=== PATIENT | female | born 1950 | race Caucasian/White ===

== ENCOUNTER 2019-01-28 05:04 | Inpatient (IN) ==
--- NOTE | 2019-01-10 18:54 | History and Physical Report ---
DATE OF ADMISSION: 01/28/2019 CHIEF COMPLAINT: Bilateral hip pain, right side greater than left. HISTORY OF PRESENT ILLNESS: The patient is a 68-year-old female from [place] who presents for surgical treatment of her hips. She has got a fairly long history of bilateral hip pain and discomfort. She describes it has gotten worse over the past 3-5 years. She looks after grandchildren, has been trying to put this off for a long time. The pain has just become more debilitating. She limps and waddles for years. This has gotten worse to the point where she cannot walk even a block. She has been through extensive treatment including various medicines which takes the edge off at best. She now likes to proceed with intervention. 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 PAST SURGICAL HISTORY: Include: 1. T and A. 2. Tubal ligation. 3. Facial surgery for skin cancer. ALLERGIES: None. CURRENT MEDICATIONS: Ibuprofen. SOCIAL HISTORY: A 68-year-old white female patient from [place]. She does not work outside the home, but does look after her grandchildren. Three children. Rare alcohol intake. FAMILY HISTORY: Significant for breast cancer and heart disease. REVIEW OF SYSTEMS: Negative for diabetes, neurologic problems, vascular problems or bleeding disorders. No chest pain or shortness of breath. No signs of DVT or PE. No known bleeding problems. PHYSICAL EXAMINATION: GENERAL: Reveals a healthy, pleasant middle-aged female. Looks to be in pretty good health. HEENT: Benign. NECK: Supple with no lymphadenopathy. LUNGS: Clear to auscultation. HEART: Regular rate and rhythm. ABDOMEN: Soft, nontender, nondistended. EXTREMITIES: Grossly neurovascularly intact except as follows: Examination of both hips reveal patient walks with a markedly antalgic gait. She waddles quite a bit. She does have a positive Trendelenburg gait. She is about 0.5 cm short on the right compared to the left. Very stiff hips with limited motion. She has got pain with hip motion on either side. She has got about a 15 degree external rotation contracture on the right and about 10 degrees on the left. Negative straight leg raise. X-RAYS: X-rays of both hips reveal advanced bilateral hip DJD with extensive erosive disease of both hips with complete loss of the joint space and cystic changes on both sides. She does have fairly diffuse osteopenia. ASSESSMENT: A 68-year-old white female with longstanding hip disease, unresponsive to conservative treatment. Her disease is very advanced and affecting her quality of life. She would like to proceed with intervention. PLAN: We are going to take her to the operating room and do a right total hip replacement. The risks and benefits of this procedure were explained to the patient including but not limited to DVT, PE, , infection, neurological injury, vascular injury, bleeding problem, pain, limited range of motion, stiffness, failure to relieve symptoms, incomplete relief of symptoms, need for further surgery in future, fracture, leg length inequality, nerve palsy, dislocation, etc. The patient understands and desires to proceed. Informed consent was obtained. We will plan on using the Corail stem, but we will need a cemented stem as a backup due to her osteopenia in case we cannot get good fixation. She does walk with a waddling gait and I am bit concerned about her hip abductors. We will be prepared to fix them if needed. We will likely make this leg a little bit longer, but she is going to need her other hip fixed in the not too distant future. We will make measurements to make sure we can equalize that. As far as discharge plans, she is planning to be discharged home using [facility].
--- NOTE | 2019-01-14 08:47 | PAT Medication Instructions ---
Medication Instructions Date of Service January 14, 2019 Home Medications ibuprofen [Advil] 3 tab PO UD PRN ASK your surgeon for instructions ibuprofen [Advil] 3 tab PO UD PRN Other Notes If you have any questions please call us at [phone] or [phone] or [phone] or [phone]
--- NOTE | 2019-01-14 13:54 | Anesthesiology Consultation ---
Date of Service January 14, 2019 Assessment & Plan (1) Encounter for pre-operative examination: Chart Review Chart Review: Acceptable Risk for Surgery and Patient seen in Pre Admission Testing Teaching & Discussion Pre-Anesthesia Teaching/Discussion Notes: Instructed NPO after midnight before surgery,except medications with 15 cc of water. Medication instructions provided according to the PAT guidelines. History Surgery Operation Date: 01/28/19 07:00 Proposed Procedures p Right Total Hip Replacement - Thang Victor MD Height/Weight Height: 5 ft 5 in Weight: 75.4 kg Allergies Allergy/AdvReac Type Severity Reaction Status Date / Time No Known Allergies Allergy Verified 12/29/18 13:03 Medications Home Medications Medication Instructions Recorded Confirmed Last Taken ibuprofen [Advil] 3 tab PO UD PRN 12/29/18 12/29/18 Unknown Past Medical History Medical History History of skin cancer Osteoarthritis Past Family History Family History Mother Family history of breast cancer Past Surgical History Surgical History History of tonsillectomy History of tubal ligation History of wisdom tooth extraction Past Anesthesia History No Hx of Anesthesia Complications and No Family Hx of Anesthesia Complications History of PONV No Motion Sickness Screening History of Motion Sickness: No Social History Smoking Status: Never smoker Do You Dip or Chew Tobacco: No Hx Alcohol Use: Yes Alcohol type: wine alcohol intake frequency: holidays/special occasions only Hx Substance Use: No substance use type: does not use Exercise / Class Metabolic Activity III < 4 Walking/Shop/Light housework (USES CANE PRN) Review of Systems Patient denies chest pain, shortness of breath, cough, wheezing, palpitations. Physical Exam Vital Signs VITALS BP 137/76 P 84 TEMP 97.9 SP02 96%RA RESP 18 PHYSICAL Full neck and c-spine range of motion. Full TMJ range of motion. TMD 3 finger breaths Mallampati Score 2 Dentition: missing sides; upper/lower partial Lungs: clear throughout to auscultation Cardiac: regular rate and rhythm, no murmurs noted Spine: normal Carotid arteries: negative bruit Extremities: no edema Testing Electrocardiogram Date: 01/14/19 Findings: + NSR @ (80) Chest X-Ray Date: 01/14/19 Findings: + NAD Hyperinflation. Laboratory Results 01/14/19 14:02 01/14/19 14:02 Blood Type O Positive 01/14/19 14:02 Antibody Screen NEGATIVE 01/14/19 14:02 PT 10.6 Seconds (9.0-12.0) 01/14/19 14:02 INR 1.0 (0.9-1.1) 01/14/19 14:02 APTT 26.5 Seconds (21.0-31.0) 01/14/19 14:02
--- NOTE | 2019-01-14 14:20 | XRay Report ---
XR chest Pre-admission PA/Lat CLINICAL HISTORY: 68 years-old Female presenting with preoperative assessment. TECHNIQUE: PA and lateral views of the chest were obtained. COMPARISON: None. FINDINGS: Cardiomediastinal silhouette normal. Hyperinflation. Lungs and pleural spaces clear. Osseous structur es normal. Upper abdomen normal. IMPRESSION: 1. No acute cardiopulmonary disease. Electronically signed by: Charles Cadena M.D. 01/14/2019 2:19 PM
[2019-01-14 15:08] LABS: Basophils # (auto) 0.02 K/uL (0-0.2); Basophils % (auto) 0.3 %; Eosinophils # (auto) 0.14 K/uL (0-0.5); Eosinophils % (auto) 2.1 %; Hematocrit (blood only) 44.5 % (37-47); Hemoglobin 15.4 g/dL (12.0-16.0); Lymphocytes # (auto) 1.47 K/uL (1.2-3.4); Lymphocytes % (auto) 21.6 %; Mean Corpuscular Hgb Conc 34.6 g/dL (32-36); Mean Corpuscular Volume 91.2 fL (80-100); Monocytes # (auto) 0.45 K/uL (0.11-0.59); Monocytes % (auto) 6.6 %; Neutrophils # (auto) 4.71 K/uL (1.4-6.5); Neutrophils % (auto) 69.4 %; Platelet Count 233 K/uL (130-400); RDW Coefficient of Variation 12.7 % (11.5-14.5); RDW Standard Deviation 42.2 fL (36.4-46.3); Red Blood Count 4.88 M/uL (4.2-5.4); White Blood Count 6.79 K/uL (4.8-10.8)
[2019-01-14 15:12] LABS: BUN Creatinine Ratio 23.4 (10-20); C Reactive Protein 0.5 mg/dl (0-0.29); Calcium 9.2 mg/dl (8.5-10.1); Est GFR (African American) 98.8; Est GFR (Non-African American) 85.2; Potassium 3.8 mmol/L (3.5-5.1)
[2019-01-14 15:25] LABS: Partial Thromboplastin Time 26.5 Seconds (21.0-31.0); Prothrombin Time 10.6 Seconds (9.0-12.0)
[2019-01-28] MEDS ORDERED: CEFAZOLIN 2000MG 2,000 MG/15 ML SYR IV SCH (06:00)
[2019-01-28] MEDS ORDERED: FAMOTIDINE 20 MG TAB PO SCH (06:00)
[2019-01-28] MEDS ORDERED: TRANEXAMIC ACID 1,000 MG **IV Pre-op IV SCH (06:00)
[2019-01-28] MEDS ORDERED: LR 60ML/HR IV SCH (06:00)
[2019-01-28] MEDS ORDERED: SCOPOLAMINE 1.5 MG TDSY TD SCH (06:00)
[2019-01-28] MEDS ORDERED: ACETAMINOPHEN 500 MG TAB PO SCH (06:00)
[2019-01-28] MEDS ORDERED: GABAPENTIN 300 MG PO SCH (06:00)
[2019-01-28] MEDS ORDERED: METOCLOPRAMIDE HCL 10 MG TABLET PO SCH (06:00)
[2019-01-28] MEDS ORDERED: CeleBREX 200 MG CAP PO SCH (06:00)
[2019-01-28] MEDS ORDERED: LR 500ML BOLUS, THEN 15ML/HR IV SCH (06:00)
[2019-01-28] MEDS ORDERED: BUPIVACAINE 0.5 % 5 MG/1 ML PF 10ML VIAL ONE (06:21)
[2019-01-28] MEDS ORDERED: BUPIVACAINE/EPINEPHRINE 0.5% MPF 1:200,000 30 ML VIAL ONE (06:34)
[2019-01-28] MEDS ORDERED: BACITRACIN INJ 50,000 UNIT VIAL ONE (06:34)
[2019-01-28] MEDS ORDERED: MIDAZOLAM HCL 1 MG/ML 2ML VIAL ONE (06:38)
[2019-01-28] MEDS ORDERED: fentaNYL citrate 100 MCG/2 ML VIAL ONE (06:38)
--- NOTE | 2019-01-28 06:52 | History & Physical Bridge Note ---
Date of Service January 28, 2019 History & Physical Bridge Note I have examined the patient, reviewed the History & Physical and in the interval since the performance of the History & Physical I have noted the following changes of clinical significance: no changes noted
[2019-01-28] MEDS ORDERED: HYDROmorphone INJ 1 MG/ML SYRINGE IV PRN (06:58)
[2019-01-28] MEDS ORDERED: MEPERIDINE HCL 25 MG/ML CARP IV PRN (06:58)
[2019-01-28] MEDS ORDERED: PHENYLEPHRINE 100MCG/ML 5ML SYR IV PRN (06:58)
[2019-01-28] MEDS ORDERED: ATROPINE SULFATE 0.1 MG/ML 10ML SYR IV PRN (06:58)
[2019-01-28] MEDS ORDERED: LABETALOL HCL IV 5 MG/ML 20ML IV PRN (06:58)
[2019-01-28] MEDS ORDERED: ePHEDrine sulfate 50 MG/ML AMP IV PRN (06:58)
[2019-01-28] MEDS ORDERED: ONDANSETRON INJ 2 MG/ML 2 ML VIAL IV PRN ×2 (06:58→09:56)
[2019-01-28] MEDS ORDERED: fentaNYL citrate 100 MCG/2 ML VIAL IV PRN (06:58)
[2019-01-28] MEDS ORDERED: PROPOFOL IV EMULSION 10 MG/ML 20 ML VIAL IV ONE (07:29)
[2019-01-28] MEDS ORDERED: ePHEDrine sulfate 50 MG/ML SYR ONE (07:29)
[2019-01-28] MEDS ORDERED: PHENYLEPHRINE 100MCG/ML 5ML SYR ONE (07:29)
[2019-01-28] MEDS ORDERED: LIDOCAINE HCL 2% 2 ML VIAL/AMP(20MG/ML) INFIL ONE (07:29)
--- NOTE | 2019-01-28 08:29 | Post Operative Brief Note ---
Immediate Post Op Note v1 Date of Surgery January 28, 2019 Pre & Post Diagnosis Operation Date: 01/28/19 07:00 Pre-Op Diagnosis: Right Hip Advanced Degenerative Joint Disease Post-Op Diagnosis: Right Hip Advanced Degenerative Joint Disease Procedure Operation Date: 01/28/19 07:00 Actual Procedures p Right Total Hip Arthroplasty--Uncemented(Right) - Thang Victor MD Surgeon Thang Victor MD Sports Teacher Alethea, PAC Estimated Blood Loss 200 Findings Consistent with Post-Op Diagnosis Fluids 1400 cc Specimens Right Femoral Head Drains Melgoza Catheter (A 16 Thai melgoza catheter was inserted by STACY Humphrey, without difficulty, clear yellow urine obtained, output was monitored by Anesthesia.) Anesthesia Type Spinal MAC Complications none Disposition Accompanied Patient To Recovery: Yes Disposition: Recovery Room
--- NOTE | 2019-01-28 09:14 | XRay Report ---
XR hip 1V RT w pelvis CLINICAL HISTORY: Postoperative evaluation. COMPARISON: Right hip radiographs January 09, 2019. FINDINGS: Alignment of the right hip arthroplasty is anatomic. There is no fracture or unexpected ra diopaque foreign body. There are acetabular screws. There are skin reagan. Severe osteoarthritis wit h joint space narrowing within the left hip is noted. IMPRESSION: Expected findings following total right hip arthroplasty. Electronically signed by: Damien Gross M.D. 01/28/2019 9:12 AM
--- NOTE | 2019-01-28 09:44 | Anesthesiology Progress Note ---
Date of Service January 28, 2019 Anesthesia Post Procedure Vital Signs Vital Signs: Temp Pulse Pulse Resp BP BP Pulse Ox 01/28/19 09:25 61 18 107/84 96 01/28/19 09:15 70 14 110/62 97 01/28/19 09:05 37.0 C 70 15 115/63 97 01/28/19 08:55 67 18 112/66 96 01/28/19 08:45 65 18 121/62 99 01/28/19 08:35 67 18 117/63 99 01/28/19 08:29 36.2 C L 74 19 113/61 99 01/28/19 06:04 36.9 C 83 20 161/88 H 97 Pain Intensity Right Hip: Pain Intensity: 0 Notes Mental Status: alert / awake / arousable Patient Amnestic to Procedure: Yes Nausea / Vomiting: adequately controlled Pain: adequately controlled Airway Patency, RR, SpO2: stable & adequate BP & HR: stable & adequate Hydration State: stable & adequate Neuraxial Anesthesia: was administered and sensory block is resolving Anesthetic Complications: no major complications apparent and Pt Satisfied with anesthetic care
[2019-01-28] MEDS ORDERED: MAGNESIUM HYDROXIDE SUSP 30 ML UDC PO PRN (09:56)
[2019-01-28] MEDS ORDERED: NALOXONE HCL 0.4 MG/1 ML VIAL/CARP IV PRN (09:56)
[2019-01-28] MEDS ORDERED: BISACODYL 10 MG SUPP PR PRN (09:56)
[2019-01-28] MEDS ORDERED: METOCLOPRAMIDE HCL INJ 5 MG/ML 2 ML VIAL IV PRN (09:56)
[2019-01-28] MEDS ORDERED: HYDROmorphone INJ 0.5 MG/0.5 ML SYR IV PRN (09:56)
[2019-01-28] MEDS ORDERED: TRAMADOL HCL 50 MG TABLET PO PRN (09:56)
[2019-01-28] MEDS ORDERED: TAMSULOSIN HCL 0.4 MG CAP PO PRN (09:56)
[2019-01-28] MEDS ORDERED: SODIUM CHLORIDE 0.9% 1000ML 1,000 ML IV SCH (11:00)
[2019-01-28] MEDS: DOCUSATE SODIUM 100 MG CAP PO SCH ×2 (11:26→21:03)
[2019-01-28] MEDS: MULTIVITAMIN TAB PO SCH (11:26)
[2019-01-28] MEDS: KETOROLAC TROMETHAMINE 15 MG/ML VIAL IV SCH ×3 (11:26→23:55)
--- NOTE | 2019-01-28 14:08 | Operative Report ---
DATE OF OPERATION: 01/28/2019 SURGEON: Thang Victor MD JUICE PACKAGING MACHINES SETTER: STACY Del Rosario PREOPERATIVE DIAGNOSIS: Right hip degenerative joint disease. POSTOPERATIVE DIAGNOSIS: Right hip degenerative joint disease. PROCEDURE PERFORMED: Right uncemented ceramic on highly cross-linked polyethylene total hip arthroplasty. COMPLICATIONS: None. ESTIMATED BLOOD LOSS: 200 mL. FLUID REPLACEMENT: 1400 mL crystalloid fluid replacement. ANESTHESIA: Spinal. DRAINS: None. SPECIMENS: Right femoral head sent for pathology. OPERATIVE INDICATIONS: The patient is a 68-year-old female who has had a long history of bilateral hip pain and discomfort. This got more debilitating over time. She has failed conservative care. X-rays showed advanced bilateral hip arthritis. The patient was having trouble even getting around. The right hip was a bit worse than the left. She elected to proceed with right total hip arthroplasty. OPERATIVE FINDINGS: Operative findings revealed advanced right hip DJD. She had extensive grade 4 changes of the femoral head and acetabulum. She had a very large anterior acetabular osteophyte. She did have some diffuse osteopenia. OPERATIVE IMPLANTS: Operative implants consisted of: 1. A Biomet G7 size 56 mm acetabular shell. 2. An apex hole eliminator. 3. 6.5 cancellous acetabular screws, 1 at 35 mm in length and 1 at 20 mm in length. 4. A highly cross-linked polyethylene liner with a 56 mm outer diameter and 36 mm inner diameter. 5. DePuy Corail size 12 KLA femoral stem. 6. A +5/36 mm ceramic articular ball. OPERATIVE PROCEDURE: The patient was taken to the operating room, identified and placed on the operating table in supine position. All contact areas were appropriately padded. IV antibiotics were provided by anesthesia team. Spinal anesthetic had been implemented in the holding area. Watts catheter was placed in sterile fashion. The patient was then placed in the left lateral decubitus position. An axillary roll was placed. [facility] was used for positioning. The right hip and leg were then prepped and draped in usual sterile fashion. A posterolateral approach of the right hip was then performed through a curvilinear incision centered over the greater trochanter. Sharp dissection was carried through the subcutaneous tissues down to the level of the IT band and gluteal fascia. The IT band and gluteal fascia were then incised longitudinally in line with skin incision. The underlying greater trochanteric bursa was excised. The piriformis and external rotators were tagged and taken off the posterior aspect of the hip joint capsule. Great care was taken throughout the procedure to protect the sciatic nerve at all times. Posterior capsulotomy was then performed leaving a large flap for later repair. Hip was internally rotated and dislocated. Femoral neck osteotomy cut was made with the final cut a cm above the lesser trochanter. Femoral head was removed and sent for pathology. The femur was retracted anteriorly. Attention was then drawn to the acetabulum. The acetabular labrum was excised. The pulvinar fat was excised. Sequential reaming of the acetabulum was then performed beginning with a size 43 and progressing up to 55. A 56 mm Biomet G7 acetabular shell was then placed in about 40 degrees of lateral opening and 20 degrees of anteversion. We fixed with two 6.5 cancellous acetabular screws. A large anterior osteophyte was removed. A trial liner was placed. Attention was then drawn to the femur. The proximal femur was entered with a cookie cutter followed by canal finder. I broached beginning with a size 8 and progressing up to 12. We got good fit at 12. I then used a calcar reamer to smooth off the calcar. We then trialed the hip and the +5 articular ball provided full stability and full extension and external rotation, flexion to 90 degrees, internal rotation to 60+ degrees. We elected to use these implants. All trial implants were removed. An apex hole eliminator was placed. Highly cross-linked polyethylene liner was placed. A Corail size 12 KLA femoral stem was placed. A +5/36 mm ceramic articular ball was placed. The hip was then relocated and found to be stable. Attention was then drawn toward closing. The wounds irrigated with copious amounts of pulsatile lavage solution. I did inject locally with 60 mL of 0.5% Marcaine with epinephrine. The patient did receive 1 gram of tranexamic acid preoperatively. The posterior capsule and external rotators were then repaired through drill holes in the posterior trochanter with #2 Ti-Cron suture. The IT band and gluteal fascia were then closed with #1 PDS suture in a running fashion. The subcutaneous tissue was then closed with 2 layers, the deep layer #1 Vicryl suture and the subcutaneous tissue with 2-0 Dexon suture in a buried interrupted fashion. The skin was then closed with skin reagan. Leg was then cleaned and dried and a sterile dressing of Xeroform, 4 x 4's, ABD pad and foam tape was applied. The patient then transferred to the recovery room in stable condition. The patient tolerated the procedure well with no complication. All needle and sponge counts were correct at the end of the operation. I attest to the content of the Intraoperative Record and any orders documented therein. Any exception s are noted below.
[2019-01-28] MEDS: ACETAMINOPHEN 500 MG TAB PO SCH ×2 (14:42→21:03)
[2019-01-28] MEDS: CEFAZOLIN 1000MG 1,000 MG/7.5 ML SYR IV SCH ×2 (14:42→21:07)
[2019-01-28] MEDS ORDERED: TRANEXAMIC ACID 1,000 MG in 0.9 % SODIUM CHLORIDE 100 ML IV SCH (15:00)
--- NOTE | 2019-01-28 15:30 | Progress Note ---
DATE: 01/28/2019 SUBJECTIVE: A 68-year-old white female postop from a right hip replacement. She is doing well. Just starting to have some pain in her hip. No chest pain or shortness of breath. Not feeling dizzy or lightheaded. OBJECTIVE: VITAL SIGNS: Temperature 36.4. Vital signs stable. GENERAL: Physical examination reveals a pleasant, middle-aged female. She is sitting up at her bedside chair and looks pretty comfortable. LUNGS: Clear to auscultation. HEART: Has regular rate and rhythm. ABDOMEN: Soft, nontender, nondistended. EXTREMITIES: Grossly neurovascularly intact except as follows: Examination of the right hip reveals the dressing to be clean, dry and intact. Thigh is soft and supple. Hip is located. She is neurologically intact. She can dorsiflex and plantarflex her foot appropriately. X-RAYS: X-rays of the right hip from recovery room reviewed. It shows a right uncemented total hip replacement. Components looked to be in good position. No signs of problems. ASSESSMENT: A 68-year-old white female postop from a right hip replacement, doing well. Just starting to have pain in the hip. Hip is located. She is neurologically intact. PLAN: 1. DVT prophylaxis including thigh-high TEDs, SCDs, and aspirin twice a day. 2. PT/OT. Weight bear as tolerated. Right total hip protocol. 3. Pain control, doing pretty well with current pain regimen. 4. IV antibiotics x24 hours. 5. Disposition: Plan to discharge to home with some home health once adequately recovered.
[2019-01-28] MEDS: CHECK SCOPOLAMINE PATCH PLACEMENT SCH ×2 (16:11→23:53)
[2019-01-28] MEDS: FERROUS GLUCONATE 324 MG TAB PO SCH (18:35)
[2019-01-28] MEDS: ASCORBIC ACID 500 MG TAB PO SCH (18:35)
[2019-01-28] MEDS: ASPIRIN 81 MG ECTAB PO SCH (21:03)
[2019-01-28] MEDS: SENNA 8.6 MG TAB PO SCH (21:03)
[2019-01-29] MEDS: ACETAMINOPHEN 500 MG TAB PO SCH ×3 (05:52→21:09)
[2019-01-29] MEDS: KETOROLAC TROMETHAMINE 15 MG/ML VIAL IV SCH ×4 (05:53→23:35)
[2019-01-29 06:20] LABS: Basophils # (auto) 0.01 K/uL (0-0.2); Basophils % (auto) 0.1 %; Eosinophils % (auto) 1.1 %; Hematocrit (blood only) 37.8 % (37-47); Hemoglobin 13.1 g/dL (12.0-16.0); Immature Granulocytes # (auto) 0.02 K/uL (0.00-0.02); Immature Granulocytes % (auto) 0.2 %; Lymphocytes # (auto) 1.14 K/uL (1.2-3.4); Lymphocytes % (auto) 12.8 %; Mean Corpuscular Hgb Conc 34.7 g/dL (32-36); Mean Corpuscular Volume 90.6 fL (80-100); Mean Platelet Volume 10.8 fL (7.4-10.4); Monocytes # (auto) 0.95 K/uL (0.11-0.59); Monocytes % (auto) 10.7 %; Neutrophils % (auto) 75.1 %; Platelet Count 190 K/uL (130-400); RDW Coefficient of Variation 12.6 % (11.5-14.5); RDW Standard Deviation 41.9 fL (36.4-46.3); Red Blood Count 4.17 M/uL (4.2-5.4); White Blood Count 8.92 K/uL (4.8-10.8)
[2019-01-29 06:53] LABS: BUN Creatinine Ratio 15.5 (10-20); Calcium 8.1 mg/dl (8.5-10.1); Creatinine Clr Calc Pharmacy 75.9 ml/min; Est GFR (African American) 98.8; Est GFR (Non-African American) 85.2; Potassium 3.8 mmol/L (3.5-5.1)
[2019-01-29] MEDS: CHECK SCOPOLAMINE PATCH PLACEMENT SCH ×3 (08:17→23:40)
[2019-01-29] MEDS: MULTIVITAMIN TAB PO SCH (08:18)
[2019-01-29] MEDS: ASCORBIC ACID 500 MG TAB PO SCH ×2 (08:18→17:29)
[2019-01-29] MEDS: FERROUS GLUCONATE 324 MG TAB PO SCH ×2 (08:18→17:29)
[2019-01-29] MEDS: ASPIRIN 81 MG ECTAB PO SCH ×2 (08:18→21:09)
[2019-01-29] MEDS: DOCUSATE SODIUM 100 MG CAP PO SCH ×2 (08:18→21:09)
--- NOTE | 2019-01-29 08:21 | Progress Note ---
DATE: 01/29/2019 SUBJECTIVE: A 68-year-old white female postop day 1 from right hip replacement. She is doing well. Not having any pain at all now. She has been up and ambulating yesterday. No chest pain or shortness of breath. Not feeling dizzy or lightheaded. OBJECTIVE: VITAL SIGNS: Temperature 37.2. Vital signs stable. PHYSICAL EXAMINATION: GENERAL: Reveals a pleasant, middle-aged female. She is lying in bed, looks comfortable. EXTREMITIES: Examination of the right hip and leg reveals the leg lengths to be equal. Dressing is clean, dry and intact. Hip is located. She is neurologically intact. LABORATORIES: Hemoglobin 13.1. Hematocrit 37.8. Electrolytes are stable. ASSESSMENT: A 68-year-old white female postoperative day 1 from right hip replacement, doing well. Pain is controlled. Hip is located. She is neurologically intact. PLAN: 1. DVT prophylaxis including thigh-high TEDs, SCDs, and aspirin twice a day. 2. PT/OT. Weight bear as tolerated. Right total hip protocol. 3. Pain control, doing well with current pain regimen. 4. Disposition: She is hoping to be discharged to home with some home health once medically stable and recovered.
--- NOTE | 2019-01-29 11:00 | Anesthesiology Progress Note ---
Date of Service January 29, 2019 Anesthesia Post Procedure Vital Signs Vital Signs: Temp Pulse Resp BP BP Pulse Ox 01/29/19 07:50 37.1 C 68 17 103/64 95 01/29/19 03:26 37.2 C 91 H 17 101/62 96 01/28/19 23:06 37.4 C 87 16 132/71 99 01/28/19 19:20 36.7 C 72 18 120/69 98 01/28/19 16:12 36.6 C 63 18 132/78 98 01/28/19 12:45 36.4 C L 60 14 136/83 98 01/28/19 11:45 36.4 C L 64 16 129/80 98 Pain Intensity Right Hip: Pain Intensity: 0 Notes Mental Status: alert / awake / arousable Nausea / Vomiting: adequately controlled Pain: adequately controlled Airway Patency, RR, SpO2: stable & adequate BP & HR: stable & adequate Hydration State: stable & adequate Neuraxial Anesthesia: was administered and sensory block resolved Anesthetic Complications: no major complications apparent and Pt Satisfied with anesthetic care
[2019-01-29] MEDS: SENNA 8.6 MG TAB PO SCH (21:09)
[2019-01-30] MEDS: KETOROLAC TROMETHAMINE 15 MG/ML VIAL IV SCH (05:50)
[2019-01-30] MEDS: ACETAMINOPHEN 500 MG TAB PO SCH (05:50)
[2019-01-30 06:30] VITALS: PULSE 77; TEMP 98.6; O2SAT 96
[2019-01-30] MEDS: ASPIRIN 81 MG ECTAB PO SCH (08:13)
[2019-01-30] MEDS: MULTIVITAMIN TAB PO SCH (08:13)
[2019-01-30] MEDS: ASCORBIC ACID 500 MG TAB PO SCH (08:13)
[2019-01-30] MEDS: DOCUSATE SODIUM 100 MG CAP PO SCH (08:13)
[2019-01-30] MEDS: FERROUS GLUCONATE 324 MG TAB PO SCH (08:13)
[2019-01-30] MEDS: CHECK SCOPOLAMINE PATCH PLACEMENT SCH (08:14)
--- NOTE | 2019-01-30 08:39 | Progress Note ---
DATE: 01/30/2019 SUBJECTIVE: A 68-year-old white female postop day 2 from right hip replacement. She is doing well. Really not had any pain currently. No chest pain or shortness of breath. Not feeling dizzy or lightheaded. OBJECTIVE: VITAL SIGNS: Temperature 37.0. Vital signs stable. GENERAL: Physical examination reveals a pleasant, middle-aged female. She is sitting up in her bedside chair and looks comfortable. EXTREMITIES: Examination of the right hip reveals the hip to be located. Dressing is clean, dry and intact. Thigh is soft and supple. She is neurologically intact. ASSESSMENT: A 68-year-old white female postop day 2 from right hip replacement, doing well. Pain is controlled. Hip is located. She is neurologically intact. PLAN: 1. DVT prophylaxis including thigh-high TEDs, SCDs, and aspirin twice a day. 2. PT/OT. Weight bear as tolerated. Right total knee protocol. 3. Pain control, doing pretty well with current pain regimen. 4. Disposition: Plan to discharge to home with some home health later today.
[2019-01-30 10:16] VITALS: BP 101/62
--- NOTE | 2019-01-31 12:35 | Discharge Summary ---
Date of Service February 02, 2019 Discharge Data Consultations 01/29/19 08:00 Consult Case Management - Discharge Planning Routine Procedures Performed Operation Date: 01/28/19 07:00 Actual Procedures p Right Total Hip Arthroplasty--Uncemented(Right) - Thang Victor MD
--- NOTE | 2019-02-01 16:01 | Discharge Summary ---
ADMITTING PHYSICIAN AND SURGEON: Dr. Thang Victor. ADMITTING DIAGNOSIS: Right hip degenerative joint disease. SURGERY PERFORMED: Right total hip arthroplasty. SECONDARY DIAGNOSES: Skin cancer. CONSULTS: None obtained. HISTORY AND PHYSICAL EXAMINATION: Well documented in the patient's chart. HOSPITAL COURSE: The patient was admitted on 01/28/2019 underwent total hip arthroplasty. There were no complications. She was transferred to the PACU postoperatively and later to the orthopedic floor for further care. She was given Ancef for antibiotic prophylaxis, NORA stockings, SCDs and aspirin for DVT prophylaxis. Hemoglobin, hematocrit and vital signs were monitored during her hospital stay and remained stable. She did not require any blood transfusions. There were no complications. On postoperative day 2, she was tolerating a regular diet, pain was controlled with oral pain medicine. She was participating in physical therapy. Postop day 2, she was discharged home, set up with home health services. She was given printed discharge instructions including new prescriptions for extra strength Tylenol, aspirin and tramadol. Continue her home medicines. Continue physical therapy, weightbearing as tolerated, NORA stockings, total hip precautions. Follow up approximately 2 weeks postoperatively or sooner if there are any problems or concerns.
== END 2019-01-30 11:00 | disposition home health service (06) | DRG 470 ==
LOC: ASU 05:04 → 3E 08:32

== ENCOUNTER 2023-01-16 05:18 | Observation (INO) ==
--- NOTE | 2022-11-10 12:54 | PAT Medication Instructions ---
Medication Instructions Date of Service November 10, 2022 Home Medications ibuprofen 200 mg tablet (Advil) 3 tab PO UD PRN Pain ASK your surgeon for instructions ibuprofen 200 mg tablet (Advil) 3 tab PO UD PRN Pain Other Notes If you have any questions please call us at [phone] or [phone] or [phone] or [phone]
--- NOTE | 2023-01-08 12:59 | Anesthesiology Consultation ---
Date of Service January 08, 2023 Assessment & Plan (1) Encounter for pre-operative examination: - COVID screening: Per assessment on 01/08: No known COVID-19 positive contacts or current COVID-19 related symptoms. Travel screen negative. At surgeon discretion if preop Covid testing being done. - S/P Right CORIE (01/28/19): SAB at L3/4 (x1 attempt) at [facility]. No issues noted per post-op anesthesia progress note. - Outpatient joint assessment: Pt currently scheduled for inpatient pathway. If surgeon requests review for outpatient joint pathway, patient is an acceptable candidate for outpatient joint program from anesthesia standpoint pending surgeon's office assessment that patient is motivated, has good support and completes [facility] Day Joint Program preop requirements. Chart Review Chart Review: Acceptable Risk for Surgery and Patient seen in Pre Admission Testing History Surgery Operation Date: 01/16/23 08:50 Proposed Procedures p Left Total Hip Arthroplasty - Thang Victor MD Height/Weight Height: 5 ft 5 in Weight: 81 kg Allergies Allergy/AdvReac Type Severity Reaction Status Date / Time No Known Allergies Allergy Verified 01/01/23 11:26 Medications Home Medications Medication Instructions Recorded Confirmed Last Taken ibuprofen 200 mg tablet (Advil) 3 tab PO UD PRN Pain 12/29/18 01/01/23 01/18/19 09:00 Past Medical History Medical History History of skin cancer Osteoarthritis Exercise / Class Metabolic Activity II 4-5 Yardwork/Stairs/Walk up hill (one FS (no CP, no SOB)) Past Family History Family History Mother Family history of breast cancer Past Surgical History Surgical History History of tonsillectomy History of tubal ligation History of wisdom tooth extraction Status post right hip replacement Right CORIE (01/28/19): SAB at L3/4 (x1 attempt) at [facility]. No issues noted per post-op anesthesia progress note. Past Anesthesia History No Hx of Anesthesia Complications and No Family Hx of Anesthesia Complications History of PONV No Hx of PONV and No Hx of Motion Sickness Social History Smoking Status: Never smoker Do You Dip or Chew Tobacco: No Hx Alcohol Use: Yes Alcohol type: hard liquor alcohol intake frequency: holidays/special occasions only substance use type: does not use Review of Systems Patient denies chest pain, shortness of breath, dyspnea on exertion, fever, chills, cough, wheezing, palpitations. Physical Exam Vital Signs VITALS BP 145/79 P 80 TEMP 98.4 SP02 96%RA RESP 16 PHYSICAL Full cervical extension range of motion. Full TMJ range of motion. TMD 4 finger breaths Mallampati Score 2 Dentition: upper/lower partials, upper front tooth recently chipped- advised patient to contact surgeon's office if plan for dental work prior to surgery Lungs: clear throughout to auscultation Cardiac: regular rate and rhythm, no murmurs noted Spine: normal Carotid arteries: negative bruit Extremities: no edema Lab Results Anesthesia Preop Results Results Anesthesia Widget: WBC 6.06 K/ul (4.8-10.8) 01/08/23 Hgb 15.6 g/dl (12.0-16.0) 01/08/23 Hct 44.8 % (37.0-47.0) 01/08/23 Plt 200 K/uL (130-400) 01/08/23 Na 140 mmol/L (136-145) 01/08/23 K 4.0 mmol/L (3.5-5.1) 01/08/23 Cl 105 mmol/L (98-107) 01/08/23 CO2 30 mmol/L (21-32) 01/08/23 BUN 14 mg/dl (6-23) 01/08/23 Creat 0.73 mg/dl (0.6-1.2) 01/08/23 Glucose Level 94 mg/dl (70-99(Fasting)) 01/08/23 PT 10.7 Seconds (9.0-12.0) 01/08/23 PTT 27.8 Seconds (21.0-31.0) 01/08/23 INR 1.0 (0.9-1.1) 01/08/23 Blood Type O Positive 01/08/23 Antibody Screen NEGATIVE 01/08/23 Testing Electrocardiogram Date: 01/08/23 NSR at 73bpm. Chest X-Ray Date: 01/08/23 FINDINGS: PA and lateral chest radiographs are compared to study dated 01/14/2019. The heart is mildly enlarged. The pulmonary vasculature is noncongested. Chronic interstitial thickening is similar to previous. The lungs and pleural spaces are clear. There is no pneumothorax. The skeletal structures are osteopenic. The bony thorax appears intact. IMPRESSION: No active disease in the chest. COVID-19 Risk Screen Screening Information COVID-19 Screen Date: 01/08/23 Exposure 21 Days Family/Household +COVID Last 21 Days: No Exposure 10 Days Any COVID Exposure Last 10 Days: No Symptoms Last 10 Days Experienced COVID Sx Last 10 Days: No + COVID 0-90 Days COVID + in Last 0-90 Days: No
--- NOTE | 2023-01-10 14:00 | History and Physical Report ---
DATE OF ADMISSION: 01/16/2023. CHIEF COMPLAINT: Left hip pain. HISTORY OF PRESENT ILLNESS: The patient is a 72-year-old female now presents for treatment of her le ft hip. She has a history of right hip replacement done on 01/28/2019. She actually had a pretty ba d arthritis in her left hip at that time. She was planning on having her left hip replaced after the right one, but COVID hit and she never got it done. She become more debilitated by her pain that sh e uses a cane all the time. She has trouble walking more than a block or two. She limps more as the day goes on. She has got groin and thigh pain, buttock pain radiating down to her knee. No numbnes s. She would like to have her hip fixed. PAST MEDICAL HISTORY: Significant for arthritis. PAST SURGICAL HISTORY: Includes: 1. Tonsillectomy. 2. Tubal ligation. 3. Right total hip replacement done on 01/28/2019. ALLERGIES: None. CURRENT MEDICATIONS: Ibuprofen. SOCIAL HISTORY: A 72-year-old female. She lives in [place]. She is . Three children. Rare alcohol intake. Does not smoke. FAMILY HISTORY: Significant for diabetes, heart disease and breast cancer. REVIEW OF SYSTEMS: Negative for diabetes. No neurological problem, vascular problems or bleeding di sorders. No chest pain or shortness of breath. No history of DVT or PE. No known bleeding problems . PHYSICAL EXAMINATION: GENERAL: Shows a pleasant middle-aged female. Looks to be in good health. HEENT: Benign. NECK: Supple. No lymphadenopathy. LUNGS: Clear to auscultation. HEART: Has a regular rate and rhythm. ABDOMEN: Soft, nontender, nondistended. EXTREMITIES: Grossly neurovascularly intact except as follows. Examination of the left hip and leg reveals the patient walks with a markedly antalgic gait. She use s a cane to get around. Leg lengths are pretty equal. There is very limited internal rotation and s tiffness with this. She has got pain with internal rotation. Negative straight leg raise. She has got about a 10-degree external rotation contracture. X-RAYS: X-rays of the left hip were reviewed. It shows advanced left hip DJD. She has complete los s of superior joint space. She has got flattening of the femoral head and cystic changes on both damaris es of the joint. ASSESSMENT: A 72-year-old female, 3+ years out from right hip replacement with advanced left hip deg enerative joint disease. She has failed conservative measures and would like to have her hip replace d. Her bone was pretty osteopenic, so we will likely use a cemented stem. She was actually going to have the surgery several years ago, but the COVID epidemic hit and never got it done. PLAN: We are going to take her to the operating room and do left total hip replacement. The risks a nd benefits of this procedure were explained to the patient and include but not limited to DVT, PE, d eath, infection, neurological injury, vascular injury, bleeding problem, pain, limited range of motio n, stiffness, failure to relieve her symptoms, incomplete relief of symptoms, etc. The patient under stands and desires to proceed. Informed consent was obtained. As far as discharge plans, she is planning to be discharged to home using [facility] progr am. Job ID: [id number]
[2023-01-16] MEDS ORDERED: METOCLOPRAMIDE HCL 10 MG TABLET PO SCH (06:00)
[2023-01-16] MEDS ORDERED: CeleBREX 200 MG CAP PO SCH (06:00)
[2023-01-16] MEDS ORDERED: LR 500ML BOLUS, THEN 15ML/HR IV SCH (06:00)
[2023-01-16] MEDS ORDERED: LR 60ML/HR IV SCH (06:00)
[2023-01-16] MEDS ORDERED: ceFAZolin 2000MG 2,000 MG/15 ML SYR IV SCH (06:00)
[2023-01-16] MEDS ORDERED: ACETAMINOPHEN 500 MG TAB PO SCH (06:00)
[2023-01-16] MEDS ORDERED: FAMOTIDINE 20 MG TAB PO SCH (06:00)
[2023-01-16] MEDS ORDERED: TRANEXAMIC ACID 1,000 MG **IV Pre-op IV SCH (06:00)
[2023-01-16] MEDS ORDERED: BUPIVACAINE 0.5 % 5 MG/1 ML PF 10ML VIAL ONE (06:14)
[2023-01-16] MEDS ORDERED: ONDANSETRON INJ 2 MG/ML 2 ML VIAL IV PRN ×2 (06:35→10:24)
[2023-01-16] MEDS ORDERED: ATROPINE SULFATE 0.1 MG/ML 10ML SYR IV PRN (06:35)
[2023-01-16] MEDS ORDERED: ePHEDrine sulfate 50 MG/ML AMP IV PRN (06:35)
[2023-01-16] MEDS ORDERED: fentaNYL citrate 100 MCG/2 ML VIAL IV PRN (06:35)
[2023-01-16] MEDS ORDERED: MIDAZOLAM HCL 1 MG/ML 2ML VIAL ONE ×2 (06:38→06:39)
[2023-01-16] MEDS ORDERED: LIDOCAINE 2% MPF LOCAL 5 ML VIAL INFIL ONE (06:38)
[2023-01-16] MEDS ORDERED: PROPOFOL IV EMULSION 10 MG/ML 20 ML VIAL IV ONE (06:38)
[2023-01-16] MEDS ORDERED: MoRPHine SULFATE PF 1 MG/ML 10 ML AMP/VIAL ONE (06:39)
--- NOTE | 2023-01-16 06:55 | History & Physical Bridge Note ---
Date of Service January 16, 2023 History & Physical Bridge Note I have examined the patient, reviewed the History & Physical and in the interval since the performance of the History & Physical I have noted the following changes of clinical significance: no changes noted
[2023-01-16] MEDS ORDERED: BUPIVACAINE/EPINEPHRINE 0.5% MPF 1:200,000 30 ML VIAL ONE (06:57)
[2023-01-16] MEDS ORDERED: KETAMINE 50 MG/5 ML SYRINGE ONE (07:28)
[2023-01-16] MEDS ORDERED: PHENYLEPHRINE 100MCG/ML 5ML SYR ONE (08:28)
[2023-01-16] MEDS ORDERED: ePHEDrine sulfate 50 MG/ML AMP ONE (08:28)
--- NOTE | 2023-01-16 09:04 | Operative Report ---
PG Post Operative Report Pre & Post Diagnosis Operation Date: 01/16/23 07:00 Pre-Op Diagnosis: Left Hip Degenerative Joint Disease Post-Op Diagnosis: Left Hip Degenerative Joint Disease I identified the patient and participated in the time-out.: Yes Procedure Operation Date: 01/16/23 07:00 Actual Procedures p Left Total Hip Arthroplasty(Left) - Thang Victor MD Surgeon Thang Victor MD [employer] Boy Claire PA-C Estimated Blood Loss 200 Findings Consistent with Post-Op Diagnosis Operative findings were advanced left hip DJD. She extensive grade 4 [id number] disease of the femoral head and acetabulum. Large anterior acetabular osteophytes as well as a central/medial osteophyte. Moderate-sized joint effusion. Fairly stiff hip preoperatively. Specimens Left femoral head sent for pathology Drains None Anesthesia Type Spinal MAC Complications none Disposition Accompanied Patient To Recovery: No Indications Patient is 72-year-old female said several year history of hip problems. She underwent a right hip replacement about 4 years ago. That she had hip arthritis at that point and was hoping her hip replaced but then COVID came along and she just never got a thing done. Please become more debilitated by left hip pain. She has trouble even get around with an assistance device. X-rays show advanced left hip arthritis. She elected proceed with total hip arthroplasty. Description of Procedure Operative implants consist of: 1 Biomet G7 size 56 mm acetabular shell. 2. 6.5 cancellous acetabular screws 1 of 35 mm length and 125 mm length. 3. Rugby hole limiter. 4. Highly cross-linked polyethylene liner with a 56 mm outer diam and 36 mm inner diameter. 5. DePuy [place] size 3 high offset set cemented femoral stem. 6. +5/36 mm ceramic articular ball. The patient was taken the operating, identified, placed on the operating table supine position protectors were properly padded. IV antibiotics tried by anesthesia team. A spinal anesthetic been implemented holding area. Watts catheter was placed in sterile fashion with the patient then placed in the right lateral decubitus position. A roll was placed. Stulberg hip positioner was used for positioning. Left hip and leg were then prepped and draped in usual sterile fashion. A posterolateral approach the left hip was then performed through a curvilinear incision centered over the greater trochanter. Sharp dissection Through subcutaneous tissue down to the IT band gluteal fascia. The IT band gluteal fascia incised longitudinally in line with skin incision. The underlying greater bursa was excised. The piriformis and external rotators along with the posterior hip joint capsule were then released from the posterior aspect hip as a single layer. Great care was taken throughout the procedure protect the sciatic nerve at all times. Hip was internally rotated and dislocated. A femoral neck osteotomy cut was made with Final Cut 10 mm above the lesser trochanter. Femoral head was removed and sent for pathology. The femur was retracted anteriorly. Attention drawn the acetabulum. The acetabulum was excised. Pulmonary fat was excised. Sequential reaming the acetabulum was then performed again with size 45 and progressing up to 55. I reamed a little bit with a 56 reamer and then placed a 56 mm cup. We placed this in about 40 degrees lateral opening and 20 degrees of anteversion. It was fixed with two 6.5 cancellous acetabular screws. A trial liner was placed. Large anterior acetabular osteophyte was removed. Attention drawn the femur. The proximal femur was then with a C4 Imaging cutter followed by canal finder and lateralizing reamer. I then broached begin the size 1 and progressing up to 3. Very AP dimensions were 3 small the neck and the 3 fit quite snugly. The calcar reamer was used smoothing off the calcar. Then trialed the hip and the +5 articular ball provide full stability of the hip and. To a great appropriate soft tissue tension and equal leg lengths. We elect to place these implants. All trial implants were removed. Rugby eliminator was placed. Highly cross- linked polyethylene liner was placed. A small cement restrictor was placed down the canal. The canal was irrigated and washed. A double batch [place] G cement was mixed and then injected in the canal. A size 3 [place]y high offset cemented femoral stem was placed. It was held in place until cement hardened. A +5/36 mm ceramic articular ball was placed. Hip was located once again found to be stable. Attention drawn toward closing. The wounds irrigated cosigns pulsatile lavage solution. I did inject locally with 60 cc of half percent Marcaine with epinephrine. Posterior capsule and external rotators then repaired through drill holes in the posterior trochanter as a single layer with #2 Tycron suture. The IT band gluteal fascia then closed in 1 PDS suture running fashion. Subcutaneous tissues then closed in 2 layers the deep layer #1 Vicryl suture and subcutaneous tissues with 2-0 Dexon suture in a buried interrupted fashion the skin was closed skin reagan. Leg was then cleaned and dried a sterile dressing was Xeroform, 4 fours, ABD pad, foam tape was applied. Patient then transferred to the recovery room in stable condition. Patient tolerated procedure well and there are no complications. Boy Claire, my physician operations assistant, was present for the entire procedure. His assistance was essential and required for appropriate patient positioning, prepping and draping, surgical exposure, performing the technical details of the operation, placement the implants, closure of the wound, and placement of the sterile bandage. I attest to the content of the Intraoperative Record and any orders documented therein. Any exceptions are noted below.
--- NOTE | 2023-01-16 09:13 | XRay Report ---
AP PELVIS, CROSSTABLE LATERAL LEFT HIP History: Left total hip arthroplasty. Degenerative arthritis. Postop. FINDINGS: The patient is status post a left total hip arthroplasty. The hardware is intact. No fractu re or dislocation. Skin reagan are in place. Evidence for prior right total hip arthroplasty. IMPRESSION: Left total hip arthroplasty. No evidence for hardware complication. ACT 112: Negative or not required by law. Electronically signed by: Bernabe Osborn M.D. 01/16/2023 9:12 AM
[2023-01-16] MEDS ORDERED: NALOXONE HCL 0.4 MG/1 ML VIAL/CARP IV PRN (10:24)
[2023-01-16] MEDS ORDERED: traMADol HCL 50 MG TABLET PO PRN (10:24)
[2023-01-16] MEDS ORDERED: METOCLOPRAMIDE HCL INJ 5 MG/ML 2 ML VIAL IV PRN (10:24)
[2023-01-16] MEDS ORDERED: HYDROmorphone INJ 0.5 MG/0.5 ML SYR IV PRN (10:24)
[2023-01-16] MEDS ORDERED: bisacodyL 10 MG SUPP PR PRN (10:24)
[2023-01-16] MEDS ORDERED: ALUMINUM/MAGNESIUM SUSP 30 ML UDC PO PRN (10:24)
[2023-01-16] MEDS ORDERED: MAGNESIUM HYDROXIDE SUSP 30 ML UDC PO PRN (10:24)
[2023-01-16] MEDS: SODIUM CHLORIDE 0.9% 1000ML 1,000 ML IV SCH ×2 (10:43→22:06)
[2023-01-16] MEDS: DOCUSATE SODIUM 100 MG CAP PO SCH ×2 (10:58→20:23)
[2023-01-16] MEDS: KETOROLAC TROMETHAMINE 15 MG/ML VIAL IV SCH ×3 (10:58→22:29)
[2023-01-16] MEDS: DOCUSATE SODIUM/SENNA 50/8.6MG TAB PO SCH (10:58)
[2023-01-16] MEDS: ASPIRIN 81 MG ECTAB PO SCH ×2 (10:58→20:23)
[2023-01-16] MEDS: MULTIVITAMIN TAB PO SCH (10:58)
[2023-01-16] MEDS ORDERED: dexAMETHasone 10 MG in SYRINGE 0 ML IV SCH (11:00)
[2023-01-16] MEDS: ACETAMINOPHEN 500 MG TAB PO SCH ×2 (13:27→22:29)
--- NOTE | 2023-01-16 13:34 | Anesthesiology Progress Note ---
Date of Service January 16, 2023 Anesthesia Post Procedure Vital Signs Vital Signs: Temp Pulse Pulse Resp BP BP Pulse Ox 01/16/23 13:15 36.9 C 72 16 148/76 H 96 01/16/23 12:22 36.4 C L 73 18 150/81 H 98 01/16/23 11:15 36.3 C L 66 18 152/84 H 93 01/16/23 10:45 36.3 C L 65 16 132/78 100 01/16/23 10:15 36.3 C L 63 16 138/83 98 01/16/23 10:00 60 12 125/78 99 01/16/23 09:50 63 20 123/70 98 01/16/23 09:40 36.7 C 61 15 127/74 100 01/16/23 09:30 63 16 126/74 99 01/16/23 09:20 68 16 119/69 99 01/16/23 09:10 68 14 127/69 98 01/16/23 09:00 68 16 122/67 100 01/16/23 08:52 36 C L 68 16 126/67 99 01/16/23 05:43 36.6 C 81 18 150/85 H 99 O2 Del Method O2 Flow Rate 01/16/23 13:15 Room Air 01/16/23 12:22 Room Air 01/16/23 11:15 Room Air 01/16/23 10:45 Room Air 01/16/23 10:15 Room Air 01/16/23 10:00 Room Air 01/16/23 09:50 Room Air 01/16/23 09:40 Room Air 01/16/23 09:30 Room Air 01/16/23 09:20 Room Air 01/16/23 09:10 Room Air 01/16/23 09:00 Room Air 01/16/23 08:52 Oxymask 7 01/16/23 05:43 Room Air Pain Intensity Left Hip: Pain Intensity: 3 Transfer of Care Handoff Completed per policy Notes Mental Status: alert / awake / arousable and participated in evaluation Patient Amnestic to Procedure: Yes Nausea / Vomiting: adequately controlled Pain: adequately controlled Airway Patency, RR, SpO2: stable & adequate BP & HR: stable & adequate Hydration State: stable & adequate Neuraxial Anesthesia: was administered and sensory block is resolving Anesthetic Complications: no major complications apparent and Pt Satisfied with anesthetic care
[2023-01-16] MEDS: ceFAZolin 2000MG 2,000 MG/15 ML SYR IV SCH ×2 (14:03→22:30)
[2023-01-16] MEDS ORDERED: TRANEXAMIC ACID / 0.7% NACL 1,000 MG/100 ML BAG IV SCH (15:00)
[2023-01-16] MEDS: ASCORBIC ACID 500 MG TAB PO SCH (16:13)
[2023-01-16] MEDS ORDERED: SENNA 8.6 MG TAB PO SCH (21:00)
[2023-01-17] MEDS: ACETAMINOPHEN 500 MG TAB PO SCH (05:39)
[2023-01-17] MEDS: KETOROLAC TROMETHAMINE 15 MG/ML VIAL IV SCH ×2 (05:40→10:47)
[2023-01-17 07:34] LABS: Basophils # (auto) 0.02 K/uL (0-0.2); Basophils % (auto) 0.2 %; Hematocrit (blood only) 37.6 % (37.0-47.0); Hemoglobin 13.5 g/dl (12.0-16.0); Immature Granulocytes # (auto) 0.04 K/uL (0.01-0.20); Immature Granulocytes % (auto) 0.3 %; Lymphocytes # (auto) 0.79 K/uL (1.2-3.4); Lymphocytes % (auto) 6.4 %; Mean Corpuscular Hemoglobin 31.8 pg (25.0-34.0); Mean Corpuscular Hgb Conc 35.9 g/dL (32.0-36.0); Mean Corpuscular Volume 88.5 fL (80.0-100.0); Mean Platelet Volume 10.7 fL (9.4-12.4); Monocytes # (auto) 0.88 K/uL (0.11-0.59); Monocytes % (auto) 7.1 %; Neutrophils # (auto) 10.61 K/uL (1.40-6.50); Platelet Count 227 K/uL (130-400); RDW Coefficient of Variation 12.1 % (11.5-14.5); RDW Standard Deviation 39.1 fL (36.4-46.3); Red Blood Count 4.25 M/uL (4.20-5.40); White Blood Count 12.34 K/ul (4.8-10.8)
--- NOTE | 2023-01-17 08:05 | Progress Notes ---
DATE OF NOTE: 01/17/2023 SUBJECTIVE: A 72-year-old female, now postoperative day 1 from a left hybrid hip arthroplasty for se naima arthritis. She is doing quite well. Has not had really much pain at all. She has been up and out of bed. Hoping to go home today. No chest pain or shortness of breath. OBJECTIVE: VITAL SIGNS: Temperature 37.0. Vital signs are stable. GENERAL: Shows a pleasant middle-aged female. She is lying in bed, looks pretty comfortable this mo rning. LUNGS: Clear to auscultation. HEART: Regular rate and rhythm. ABDOMEN: Soft, nontender, nondistended. EXTREMITIES: Grossly neurovascularly intact except as follows. Examination of the left hip and leg reveals the dressing to be clean, dry and intact. Leg lengths eq ual. Thigh is soft and supple. She is neurologically intact. LABORATORY DATA: Hemoglobin 13.5. Hematocrit 37.6. White cell count 12.34. Electrolytes are pendi ng. ASSESSMENT: A 72-year-old white female postoperative day 1 from a left hip replacement, doing quite well. Pain is controlled. Hip is located. She is neurologically intact. PLAN: 1. DVT prophylaxis includes thigh-high TEDs, SCDs, and aspirin twice a day. 2. PT/OT, weightbear as tolerated. Left total hip protocol. 3. Pain control, doing okay with current pain regimen. Really not having much pain. 4. Disposition: Plan to discharge to home with some home health if she does okay in therapy. Job ID: [id number]
[2023-01-17] MEDS: ASCORBIC ACID 500 MG TAB PO SCH (08:33)
[2023-01-17] MEDS: DOCUSATE SODIUM/SENNA 50/8.6MG TAB PO SCH (08:33)
[2023-01-17] MEDS: DOCUSATE SODIUM 100 MG CAP PO SCH (08:33)
[2023-01-17] MEDS: ASPIRIN 81 MG ECTAB PO SCH (08:33)
[2023-01-17] MEDS: MULTIVITAMIN TAB PO SCH (08:33)
[2023-01-17 08:43] LABS: Potassium 4.3 mmol/L (3.5-5.1)
[2023-01-17 08:49] LABS: BUN Creatinine Ratio 23.1 (10-20); Creatinine Clr Calc Pharmacy 69.4 ml/min; Est GFR (African American) 88.6 ml/min; Est GFR (Non-African American) 76.5 ml/min
== END 2023-01-17 11:53 | disposition home health service (06) ==
LOC: ASU 05:18 → 3W 05:18